=== PATIENT | male | born 1965 | race American Indian/Alaskan Native ===

== ENCOUNTER 2018-12-02 09:58 | Outpatient (CLI) | payer OTHER ==
--- NOTE | 2018-12-02 11:43 | Magnetic Resonance Report ---
MRI RIGHT SHOULDER WITHOUT CONTRAST INDICATION: ROTATOR CUFF INJURY RIGHT SHOULDER PAIN. COMPARISON: None available. TECHNIQUE: Multisequence, multiplanar images were obtained. FINDINGS: SUPRASPINATUS: There is a partial articular surface tear of the middle third of the supraspinatus ten don at the footplate insertion involving about 60-70% of the tendon thickness without significant deg enerative fracture or muscle atrophy. The tear measures about 8 mm in greatest AP dimension. INFRASPINATUS: Mild tendinosis without discrete tear. SUBSCAPULARIS: No significant abnormality. BICEPS TENDON, LONG HEAD: No significant abnormality. GLENOID LABRUM: No significant abnormality. ARTICULAR CARTILAGE: No significant abnormality. JOINT SPACE AND CAPSULE: No significant abnormality. ACROMIOCLAVICULAR JOINT: No significant abnormality. SUBACROMIAL/SUBDELTOID SPACE: No significant abnormality. BONES: No bone marrow edema. No fracture. No osseous lesion. SOFT TISSUES: No acute findings. ADDITIONAL FINDINGS: None. IMPRESSION: 1. Moderate partial articular surface tear of the mid supraspinatus tendon at the footplate insertion without significant retraction or muscle atrophy. 2. Mild infraspinatus tendinosis without discrete tear. Signer Name: Koby Bello MD Signed: 12/02/2018 11:39 AM Workstation Name: [id number]
== END 2018-12-02 09:59 | disposition home or self-care (01) ==
LOC: SPVIMAG 09:58
PROVIDERS: ATTEND Orthopaedic Surgery
DX: M75.101 Unspecified rotator cuff tear or rupture of right shoulder, not specified as traumatic (principal); M75.21 Bicipital tendinitis, right shoulder